=== PATIENT | female | born 1985 | race Caucasian/White ===

== ENCOUNTER 2019-03-20 16:43 | Emergency (ER) | payer SELFPAY ==
[~2019-03-20] VITALS: Ht 162.6 cm; Wt 106.8 kg
[~2019-03-20 16:43] MED LIST: NO HOME MEDICATIONS
[2019-03-20 18:01] VITALS: BP 128/76; PULSE 82; TEMP 98.6
== END 2019-03-20 18:02 | disposition home or self-care (01) ==
LOC: COL.ER 16:43
DX: M79.671 Pain in right foot (principal)

== ENCOUNTER 2019-05-19 07:27 | Emergency (ER) | payer BC ==
[~2019-05-19] VITALS: Ht 162.6 cm; Wt 104.5 kg
[2019-05-19 07:32] VITALS: BP 127/76; TEMP 96.5
[2019-05-19] MEDS ORDERED: CLARITIN-D 10 M1 T24 PO (07:55)
[2019-05-19 08:50] VITALS: PULSE 95
== END 2019-05-19 08:50 | disposition home or self-care (01) ==
LOC: COL.ER 07:27
DX: S93.402A Sprain of unspecified ligament of left ankle, initial encounter (principal); X50.1XXA Overexertion from prolonged static or awkward postures, initial encounter; Y92.009 Unspecified place in unspecified non-institutional (private) residence as the place of occurrence of the external cause

== ENCOUNTER 2019-08-26 05:19 | Day surgery (SDC) | payer BC ==
[~2019-08-26] VITALS: Ht 162.6 cm; Wt 112.1 kg
[~2019-08-26 05:19] MED LIST changes: +CLARITIN-D 10 M1 T24 PO
[2019-08-26 05:50] VITALS: BP 134/72; PULSE 76; TEMP 97.6
[2019-08-26] MEDS ORDERED: TYLENOL 325MG325 MG PO (05:57)
[2019-08-26] MEDS ORDERED: PROAIR HFA0.09 MG/AC IH (05:57)
--- NOTE | 2019-08-26 07:43 | NUR ---
Initial visit; Patient requested prayer prior to her 'Procedure.' Airam thanked Microbiology Analyst for encouragement and prayer.
[2019-08-26 09:35] VITALS: BP 131/80; PULSE 75; TEMP 98.3
--- NOTE | 2019-08-26 09:35 | NUR ---
The patient arrived back to [place] [facility] [facility] from the recovery room at this time. The patient appears drowsy but arouses easily to her name. The patient's post operative vital signs were started at this time. The patient has a splint/ariel wrap dressing in place to her left lower extremity that appears clean, dry and intact. The patient has oxygen in place at 2L per nasal cannula. The patient's left leg is elevated on a pillow with ice in place. The patient's family was brought back to be at her bedside. The patient denies any pain in her left lower leg but does report having a headache at this time. Will continue to monitor the patient.
[2019-08-26] MEDS ORDERED: PERCOCET 325 MG1 TA2 PO (09:45)
[2019-08-26] MEDS ORDERED: ASPIRIN 32325 MG/TAB PO (09:46)
[2019-08-26] MEDS ORDERED: COLACE 100100 MG/CAP PO (09:46)
[2019-08-26] MEDS ORDERED: MOBIC15 MG PO (09:46)
[2019-08-26] MEDS ORDERED: ZOFRAN 4MG T4 MG/TAB PO (09:47)
[2019-08-26 09:50] VITALS: BP 130/78; PULSE 72
--- NOTE | 2019-08-26 09:50 | NUR ---
The patient was given some apple juice to try at this time. Vital signs appear stable. Call light remains within reach. Will continue to monitor the patient.
[2019-08-26 10:05] VITALS: BP 112/71; PULSE 74
--- NOTE | 2019-08-26 10:05 | NUR ---
The patient has given a dose of Tyelnol 1000 mg PO at this time for the report of a headache. The patient appears to be tolerating the apple juice well without reports of nausea. The patient was assisted up to the bedside commode with non weight bearing on her left leg and appeared to tolerate the activity well and voided without difficulty.
[2019-08-26 10:20] VITALS: BP 112/71; PULSE 75
--- NOTE | 2019-08-26 10:25 | NUR ---
Discharge instructions were reviewed with the patient and her family at this time. They all verbalized understanding and questions were answered at this time. The patient's IV to her left hand was removed and a pressure dressing was applied to the site. The patient's family is going to assist her to get dressed.
--- NOTE | 2019-08-26 10:40 | NUR ---
The patient was escorted out via wheelchair to a private vehicle by SUZI Bardales. The patient's belongings and discharge paperwork were sent with her. The patient's family is present to drive her home.
== END 2019-08-26 10:40 | disposition home or self-care (01) ==
LOC: SDCO 05:19
DX: S86.392A Other injury of muscle(s) and tendon(s) of peroneal muscle group at lower leg level, left leg, initial encounter (principal); Z87.891 Personal history of nicotine dependence; Z88.6 Allergy status to analgesic agent; Z91.040 Latex allergy status
CPT/HCPCS: J0690; J1100; J1885; J2250; J2405; J2550; J2704; J2795; J7120

== ENCOUNTER 2019-12-20 12:03 | Emergency (ER) | payer BC ==
[~2019-12-20] VITALS: Ht 162.6 cm; Wt 109.1 kg
[~2019-12-20 12:03] MED LIST changes: +ASPIRIN 32325 MG/TAB PO; +COLACE 100100 MG/CAP PO; +FLEXERIL 1010 MG/TAB PO; +FLEXERIL5 MG PO; +IBU800 M1 PO; +MOBIC15 MG PO; +PERCOCET 325 MG1 TA2 PO; +PROAIR HFA0.09 MG/AC IH; +TYLENOL 325MG325 MG PO; +WALKER MC; +ZOFRAN 4MG T4 MG/TAB PO; +ZTLIDO1 EACH TP
[2019-12-20 12:25] VITALS: TEMP 98.3
[2019-12-20 13:01] LABS: BASO # 0.1 (0.0-0.2); BASO % 0.7 % (0.0-2.0); EOS # 0.4 (0.0-0.7); EOS % 4.2 % (0-4.0); GRAN # 5.5 (1.4-6.5); GRAN % 58.2 % (42.2-75.2); HEMATOCRIT 39.3 % (37.0-47.0); LYMPH # 2.7 (1.2-3.4); LYMPH % 28.9 % (20.0-51.0); MEAN CELL VOLUME 88 fl (80.0-100.0); MEAN CORPUSCULAR HEMOGLOBIN 29 pg (27.0-31.0); MEAN CORPUSCULAR HGB CONC 33 g/dl (33.0-37.0); MEAN PLATELET VOLUME 10.1 fl (7.4-10.4); MONO # 0.7 (0.1-0.6); MONO % 7.1 % (1.7-9.3); PLATELET COUNT 195 K/mm3 (130-400); RED BLOOD COUNT 4.46 M/mm3 (4.10-5.30); REDCELL DISTRIBUTION WIDTH-CV 12.4 % (11.5-14.5)
[2019-12-20 13:13] LABS: STREP SCREEN NEGATIVE
[2019-12-20 13:17] LABS: ALBUMIN 4.5 gm/dL (3.5-5.0); BILIRUBIN,TOTAL 0.5 mg/dL (0.0-1.0); CALCIUM 9.1 mg/dL (8.4-10.2); CREATININE, serum 0.8 (0.52-1.25); POTASSIUM 4.1 mmol/L (3.4-5.0); TOTAL PROTEIN 7.4 gm/dL (6.4-8.2)
[2019-12-20 13:18] LABS: MONOSCREEN NEGATIVE
[2019-12-20] MEDS ORDERED: AMOXICILLIN 8751 TAB PO (13:18)
[2019-12-20 14:14] VITALS: BP 114/848; PULSE 85
== END 2019-12-20 14:29 | disposition home or self-care (01) ==
LOC: COL.ER 12:03
PROVIDERS: Emergency Medicine
DX: J02.9 Acute pharyngitis, unspecified (principal); J45.909 Unspecified asthma, uncomplicated
CPT/HCPCS: J7030

== ENCOUNTER 2021-01-16 21:24 | Emergency (ER) | payer OTHER, BC ==
[~2021-01-16] VITALS: Ht 165.1 cm; Wt 93.2 kg
[~2021-01-16 21:24] MED LIST changes: +AMOXICILLIN 8751 TAB PO
[2021-01-16] MEDS ORDERED: NORCO 325 MG-51 TAB PO ×4 (23:06→23:11)
[2021-01-16 23:19] VITALS: BP 119/75; PULSE 89; TEMP 98.1
[2021-01-17] MEDS ORDERED: ULTRAM 50MG TAB50 MG PO (01:00)
[2021-01-17] MEDS ORDERED: FLEXERIL 1010 MG/TAB PO (16:43)
== END 2021-01-16 23:19 | disposition home or self-care (01) ==
LOC: COL.ER 21:24
DX: S43.031A Inferior subluxation of right humerus, initial encounter (principal); Z87.891 Personal history of nicotine dependence; Z88.6 Allergy status to analgesic agent; W18.09XA Striking against other object with subsequent fall, initial encounter
CPT/HCPCS: J1885

== ENCOUNTER 2021-11-06 09:03 | Emergency (ER) | payer SELFPAY ==
[~2021-11-06] VITALS: Ht 162.6 cm; Wt 106.8 kg
[~2021-11-06 09:03] MED LIST changes: +NORCO 325 MG-51 TAB PO; +ULTRAM 50MG TAB50 MG PO
[2021-11-06 09:13] VITALS: TEMP 97
[2021-11-06 10:00] VITALS: BP 120/80; PULSE 104
[2021-11-06] MEDS ORDERED: MULTI VITAMINS1 TAB PO (10:11)
[2021-11-06] MEDS ORDERED: ALBUTEROL SULFAT3 M3 IH (10:11)
== END 2021-11-06 10:45 | disposition home or self-care (01) ==
LOC: COL.ER 09:03
DX: U07.1 COVID-19 (principal); Z91.040 Latex allergy status

== ENCOUNTER 2024-02-27 09:13 | Emergency (ER) | payer SELFPAY ==
[~2024-02-27] VITALS: Ht 162.6 cm; Wt 95.5 kg
[~2024-02-27 09:13] MED LIST changes: +ALBUTEROL SULFAT3 M3 IH; +MULTI VITAMINS1 TAB PO
[2024-02-27 09:21] VITALS: TEMP 97.6
[2024-02-27 10:32] VITALS: BP 118/89; PULSE 72
== END 2024-02-27 10:32 | disposition home or self-care (01) ==
LOC: COL.ER 09:13
DX: U07.1 COVID-19 (principal); R11.2 Nausea with vomiting, unspecified; R19.7 Diarrhea, unspecified; F17.210 Nicotine dependence, cigarettes, uncomplicated; Z91.040 Latex allergy status